=== PATIENT | female | born 1960 | race Caucasian/White ===

== ENCOUNTER 2019-01-22 22:23 | Emergency (ER) | payer BC ==
[2019-01-22 22:59] LABS: INR 1.03 (0.82-1.09)
[2019-01-22 23:43] LABS: ABS Lymphocytes 1.2 10^3/ul (1.0-4.8); ABS Monocytes 0.1 10^3/ul (0-0.8); ABS Neutrophils 0.5 10^3/ul (1.5-7.7); Eosinophil % 0.5 %; Hematocrit 20 % (35-47); Hemoglobin 7.3 g/dL (12.0-16.0); Lymphocyte % 64.9 %; Mean Corpuscular HGB Conc 37 g/dL (31-36); Mean Corpuscular Hemoglobin 44 pg (27-31); Mean Corpuscular Volume 120 fL (80-97); Mean Platelet Volume 6.5 fL (7.4-10.4); Nucleated Red Blood Cells % 0.1; Platelet Count 44 10^3/uL (150-450); Red Blood Count 1.65 10^6 /uL (3.70-4.87); Red Cell Distribution Width 15 % (10-15); White Blood Count 1.8 10^3/uL (3.5-10.8)
[2019-01-23 00:27] LABS: Albumin 4.3 g/dL (3.2-5.2); Albumin/Globulin Ratio 1.8 (1-3); BUN/Creatinine Ratio 26.8 (8-20); Calcium 8.9 mg/dL (8.6-10.3); EGFR African American 101.6 (>60); Globulin 2.4 g/dL (2-4); Potassium 3.4 mmol/L (3.5-5.0); Total Bilirubin 0.4 mg/dL (0.2-1.0); Total Protein 6.7 g/dL (6.4-8.9)
--- NOTE | 2019-01-23 02:16 | ED ---
Shortness of Breath - HPI Summary HPI Summary: Patient is a 59 y/o F presenting to the ED for a chief complaint of shortness of breath that began 3 weeks ago with exertion. Since the episode of shortness of breath, her symptoms have persisted and worsened over the last 3 weeks. On , she notes an episode of lightheadedness that she describes as if she would have a vasovagal after which she sat on the floor until the lightheadedness passed 15 minutes later. At that time, she also felt epigastric abdominal pain. She also admits some midsternal chest pain. Patient denies cough , fever, chills, vomiting, or growths on her body. She was recently seen by her PCP and given a referral to cardiology, but has not yet had her appointment. PMHx is significant for thrombocytosis. - History of Current Complaint Chief Complaint: EDShortnessOfBreath Time Seen by Provider: 01/23/19 01:59 Hx Obtained From: Patient Onset/Duration: Sudden Onset, Still Present Timing: Constant Current Severity: Moderate Dyspnea At: Exertion Aggravating Factors: Nothing Alleviating Factors: Nothing Associated Signs & Symptoms: Dizzy - Allergy/Home Medications Allergies/Adverse Reactions: Allergies Allergy/AdvReac Type Severity Reaction Status Date / Time No Known Allergies Allergy Verified 01/22/19 22:37 Home Medications: Home Medications Aspirin [Aspir-Low] 81 mg PO DAILY 01/23/19 [History Confirmed 01/23/19] HydroxyUREA CAP* [Hydrea CAP*] 1,000 mg PO DAILY 01/23/19 [History Confirmed 01/01] Iron Polysaccharide Complex [Ferrex 150] 150 mg PO DAILY 01/23/19 [History Confirmed 01/23/19] Sertraline HCl [Zoloft] 50 mg PO DAILY 01/23/19 [History Confirmed 01/23/19] PMH/Surg Hx/FS Hx/Imm Hx Previously Healthy: Yes Endocrine/Hematology History: Denies: Hx Diabetes Cardiovascular History: Denies: Hx Hypercholesterolemia, Hx Hypertension Musculoskeletal History: Denies: Hx Rheumatoid Arthritis, Hx Osteoporosis Sensory History: Denies: Hx Legally Blind, Hx Deafness Opthamlomology History: Denies: Hx Legally Blind EENT History: Denies: Hx Deafness - Cancer History Hx Chemotherapy: No Hx Radiation Therapy: No - Surgical History Surgical History: None Surgery Procedure, Year, and Place: None Infectious Disease History: No Infectious Disease History: Denies: Traveled Outside the [place] in Last 30 Days - Family History Known Family History: Negative: Diabetes - Social History Occupation: Employed Full-time Alcohol Use: None Hx Substance Use: No Substance Use Type: Reports: None Hx Tobacco Use: No Smoking Status (MU): Never Smoked Tobacco Review of Systems Negative: Fever, Chills Positive: Chest Pain - Midsternal Positive: Shortness Of Breath. Negative: Cough Positive: Abdominal Pain - Epigastric. Negative: Vomiting Positive: Other - Negative growths on the body Neurological: Other - Positive lightheadedness All Other Systems Reviewed And Are Negative: Yes Physical Exam - Summary Physical Exam Summary: Appearance: Well-appearing, Well-nourished, lying in bed comfortably Skin: Warm, dry, no obvious rash Eyes: sclera anicteric, conjunctival pallor ENT: mucous membranes moist, pharynx appears normal Neck: Supple, nontender Respiratory: Clear to auscultation, no signs of respiratory distress Cardiovascular: Normal S1, S2. No murmurs. Normal distal pulses in tibial and radial bilaterally. Abdomen: Soft, nontender, normal active bowel sounds present Musculoskeletal: Normal, Strength/ROM Intact Neurological: A&Ox3, awake and alert, mentation is normal, speech is fluent and appropriate Psychiatric: affect is normal, does not appear anxious or depressed Triage Information Reviewed: Yes Vital Signs On Initial Exam: Initial Vitals Temp Pulse Resp BP Pulse Ox 98.3 F 99 18 135/76 98 01/22/19 22:31 01/22/19 22:31 01/22/19 22:31 01/22/19 22:31 01/22/19 22:31 Vital Signs Reviewed: Yes Procedures - Sedation Patient Received Moderate/Deep Sedation with Procedure: No Diagnostics - Vital Signs Vital Signs Temp Pulse Resp BP Pulse Ox 01/23/19 00:37 98.1 F 89 18 95/60 99 01/22/19 22:31 98.3 F 99 18 135/76 98 - Laboratory Lab Results: Lab Results 01/22/19 01/22/19 01/22/19 Range/Units 22:46 22:46 22:46 WBC 1.8 L (3.5-10.8) 10^3/uL RBC 1.65 L (3.70-4.87) 10^6 /uL Hgb 7.3 L (12.0-16.0) g/dL Hct 20 L (35-47) % MCV 120 H (80-97) fL MCH 44 H (27-31) pg MCHC 37 H (31-36) g/dL RDW 15 (10-15) % Plt Count 44 L (150-450) 10^3/uL MPV 6.5 L (7.4-10.4) fL Neut % (Auto) 29.7 % Lymph % (Auto) 64.9 % [place] % (Auto) 4.8 % Eos % (Auto) 0.5 % Baso % (Auto) 0.1 % Absolute Neuts (auto) 0.5 L* (1.5-7.7) 10^3/ul Absolute Lymphs (auto) 1.2 (1.0-4.8) 10^3/ul Absolute Monos (auto) 0.1 (0-0.8) 10^3/ul Absolute Eos (auto) 0.0 (0-0.6) 10^3/ul Absolute Basos (auto) 0.0 (0-0.2) 10^3/ul Absolute Nucleated RBC 0.0 10^3/ul Nucleated RBC % 0.1 Hem Pathologist Commnt Pending INR (Anticoag Therapy) 1.03 (0.82-1.09) Sodium 137 (135-145) mmol/L Potassium 3.4 L (3.5-5.0) mmol/L Chloride 103 (101-111) mmol/L Carbon Dioxide 28 (22-32) mmol/L Anion Gap 6 (2-11) mmol/L BUN 19 (6-24) mg/dL Creatinine 0.71 (0.51-0.95) mg/dL Est GFR ( Amer) 101.6 (>60) Est GFR (Non-Af Amer) 84.0 (>60) BUN/Creatinine Ratio 26.8 H (8-20) Glucose 114 H (70-100) mg/dL Calcium 8.9 (8.6-10.3) mg/dL Total Bilirubin 0.40 (0.2-1.0) mg/dL AST 12 L (13-39) U/L ALT 9 (7-52) U/L Alkaline Phosphatase 62 (34-104) U/L Troponin I 0.00 (<0.03) ng/mL Total Protein 6.7 (6.4-8.9) g/dL Albumin 4.3 (3.2-5.2) g/dL Globulin 2.4 (2-4) g/dL Albumin/Globulin Ratio 1.8 (1-3) Result Diagrams: 01/22/19 22:46 01/23/19 04:50 Lab Statement: Any lab studies that have been ordered have been reviewed, and results considered in the medical decision making process. - EKG 22:28 Cardiac Rate: NL - 94 BPM EKG Rhythm: Sinus Rhythm ST Segment: Normal Ectopy: None Summary of EKG Findings: EKG at 22:28 shows NSR at 94 BPM, P waves, QRS complex , and T waves are within normal limits, T waves and intervals are normal, no ischemic changes. This is a normal EKG. Reviewed and interpreted by Dr. Russo. Course/Dx - Course Course Of Treatment: Patient is a 59 y/o F presenting to the ED for a chief complaint of shortness of breath that began 3 weeks ago with exertion. Since the episode of shortness of breath, her symptoms have persisted and worsened over the last 3 weeks. On 01/19/19, she notes an episode of lightheadedness that she describes as if she would have a vasovagal after which she sat on the floor until the lightheadedness passed 15 minutes later. At that time, she also felt epigastric abdominal pain. She also admits some midsternal chest pain. Patient denies cough, fever, chills, vomiting, or growths on her body. She was recently seen by her PCP and given a referral to cardiology, but has not yet had her appointment. PMHx is significant for thrombocytosis. On exam, conjunctival pallor. Laboratory abnormal findings: WBC 1.8, RBC 1.65, Hgb 7.3, Hct 20, MCV 120, MCH 44, MCHC 37, Plt count 44, MPV 6.5, absolute neuts 0.5, potassium 3.4, BUN/creatinine ratio 26.8, glucose 114, AST 12. EKG at 22:28 shows NSR at 94 BPM, P waves, QRS complex, and T waves are within normal limits , T waves and intervals are normal, no ischemic changes. This is a normal EKG. At 02:56, Dr. Mosley agrees to admit the patient with a diagnosis of pancytopenia. Patient will be admitted to [facility] with a diagnosis of pancytopenia. - Diagnoses Provider Diagnoses: Pancytopenia, Severe anemia - Physician Notifications Discussed Care of Patient With: Audrey Mosley - At 02:56, Dr. Mosley agrees to admit the patient with a diagnosis of pancytopenia. Time Discussed With Above Provider: 02:56 Instructed by Provider To: Admit As Inpatient Discharge ED - Sign-Out/Discharge Documenting (check all that apply): Patient Departure - Admit - Discharge Plan Condition: Guarded Disposition: ADMITTED TO [facility] - Billing Disposition and Condition Condition: GUARDED Disposition: Admitted to [facility] - Attestation Statements Document Initiated by El: Yes Documenting Scribe: Maria M Bojorquez Provider For Whom El is Documenting (Include Credential): Donny Russo MD Scribe Attestation: Maria M Barahona scribed for Donny Russo MD on 01/23/19 at 0630. Scribe Documentation Reviewed: Yes Provider Attestation: The documentation as recorded by the Maria M wright accurately reflects the service I personally performed and the decisions made by Donny fernandez MD Status of Scribe Document: Viewed
--- NOTE | 2019-01-23 05:05 | HP ---
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 Initial labs show pancytopenia. Oncology consulted in the ER, recommended blood transfusion and will see her in the morning. - Past Medical History Heme/Onc: Other - thrombocytosis - Past Surgical History Past Surgical History: None - Past Family History Family History: Cancer - Past Social History Smoke: No Alcohol: None Drugs: None Lives: With Family Review of Systems - Measurements Intake and Output: Intake and Output Last 24 Hours 01/20/19 01/21/19 01/22/19 01/23/19 06:59 06:59 06:59 06:59 Weight 112 lb 3.445 oz - Review of Systems Constitutional Symptoms: Positive: Fatigue, Unexplained Falls Negative: Weight Gain, Weight Loss, Weakness, Fever, Night Sweats, Other Dermatology: Negative: Normal, Rash, Skin Lesions, Cancer, Skin Lumps, Other HEENT: Negative: Normal, Change in Hearing, Vertigo, Dental Problems, Tinnitus, Sinus Problem, Other Eyes: Negative: Normal, Change in Vision, Double Vision, Eye Pain, Glaucoma, Cataract, Contacts or Glasses, Other Thyroid: Negative: Normal, Goiter, Thyroid Nodule, Cold Intolerance, Heat Intolerance , Sweatiness, Tremor, Frequent Defecation, Constipation, Palpitations, Primary Hypothyroidism, Primary Hyperthyroidism, Weight Loss, Weight Gain, Change in Skin/Hair, Change in Menstruation, Radiation Exposure, Other Pulmonary: Negative: Normal, Cough, Sputum, Hemoptysis, Wheezing, Respiratory Distress, Shortness of Breath, COPD, Asthma, Exercise Intolerance, Home Oxygen, Other Cardiology: Negative: Normal, Chest Pain, Shortness of Breath, Palpitations, Swelling of Ankles, Peripheral Vascular Dis, Edema, Faintness, Syncope, Claudication, Proximal NocturnalDyspnea, Orthopnoea, Other Gastroenterology: Negative: Normal, Abdominal Pain, Nausea, Vomiting, Anorexia, Indigestion, Difficulty Swallowing, Heartburn, Constipation, Diarrhea, Blood in Stools, Change in Bowel Habits, Haematemesis, Melena, Other Genital - Urinary: Negative: Normal, Dysuria, Hematuria, Polyuria, Nocturia, Other Musculoskeletal: Negative: Joint Pain, Joint Stiffness, Arthritis, Osteoporosis, Low Back Pain , Sciatica, Joint Deformities, Kyphoscoliosis, Other Endocrinology: Negative: Normal, Thyroid Problems, Adrenal Problems, Gonadal Problems, Family Hx Endocrine Disorders, Obesity, Diabetes Mellitus, Hyperglycemia, Hx Hypoglycemia, Diabetic Foot Ulcers, Calluses, Hirsutism, Menstrual Abnormalities , Polydipsia, Polyuria, Gonadal Problems, Gynecomastia, Pituitary disease, Other Hematologic/Lymphatic: Negative: Anemia, Easy Bruising, Hx Leukemia, Hx Lymphoma, Use of Anticoagulant, Use of Antiplatelet Drugs, Other Neurology: Negative: Normal, Headache, Migraines, Change in Vision, Diplopia, Dizziness , Change in Balancing, Change in Coordination, Change in Memory, Change in Speech, Change in Sphincter Function, Change in Walking, Numbness\Paresthesiae, Unexplained Weakness, Hx of Stroke\TIA, Hx of Seizures, Other Psychiatry: Negative: Normal, Depression, Anxiety, Depressed Mood, Anhedonia, Sexual Dysfunction, Weight Change, Guilt Feelings, Tearfulness, Unusual Fatigue, Unusual Anxiety, Suicidal Ideation, Hypomania, Eating Disorders, Other Objective Active Medications: Hydroxyurea (Hydrea Cap*) 1,000 mg PO DAILY [facility] Sertraline HCl (Zoloft*) 50 mg PO DAILY [facility] Vital Signs - 8 hr 01/22/19 01/23/19 01/23/19 22:31 00:37 02:03 Temperature 98.3 F 98.1 F Pulse Rate 99 89 89 Respiratory 18 18 19 Rate Blood Pressure 135/76 95/60 (mmHg) O2 Sat by Pulse 98 99 100 Oximetry 01/23/19 01/23/19 01/23/19 02:04 02:34 03:00 Temperature Pulse Rate 85 92 87 Respiratory 19 13 14 Rate Blood Pressure 155/95 154/84 (mmHg) O2 Sat by Pulse 100 99 98 Oximetry 01/23/19 01/23/19 01/23/19 03:04 03:42 03:55 Temperature Pulse Rate 85 86 83 Respiratory 19 10 17 Rate Blood Pressure 131/79 132/81 120/78 (mmHg) O2 Sat by Pulse 98 98 98 Oximetry 01/23/19 01/23/19 01/23/19 04:00 04:03 04:04 Temperature 97.9 F Pulse Rate 85 82 Respiratory 10 15 Rate Blood Pressure 117/72 (mmHg) O2 Sat by Pulse 99 99 Oximetry 01/23/19 04:18 Temperature 97.7 F Pulse Rate 83 Respiratory 14 Rate Blood Pressure 112/67 (mmHg) O2 Sat by Pulse 100 Oximetry Oxygen Devices in Use Now: None Appearance: pleasant, NID Eyes: No Scleral Icterus, PERRLA Ears/Nose/Mouth/Throat: NL Teeth, Lips, Gums, Clear Oropharnyx, Mucous Membranes Moist Neck: NL Appearance and Movements; NL JVP, Trachea Midline Respiratory: Symmetrical Chest Expansion and Respiratory Effort, Clear to Auscultation, Clear to Percussion Cardiovascular: NL Sounds; No Murmurs; No JVD, No Edema Abdominal: NL Sounds; No Tenderness; No Distention Lymphatic: No Cervical Adenopathy Extremities: No Edema Skin: No Rash or Ulcers, No Nodules or Sclerosis Neurological: Alert and Oriented x 3, NL Muscle Strength and Tone Result Diagrams: 01/22/19 22:46 01/22/19 22:46 Additional Lab and Data: Lab Results 01/22/19 01/22/19 01/22/19 Range/Units 22:46 22:46 22:46 WBC 1.8 L (3.5-10.8) 10^3/uL RBC 1.65 L (3.70-4.87) 10^6 /uL Hgb 7.3 L (12.0-16.0) g/dL Hct 20 L (35-47) % MCV 120 H (80-97) fL MCH 44 H (27-31) pg MCHC 37 H (31-36) g/dL RDW 15 (10-15) % Plt Count 44 L (150-450) 10^3/uL MPV 6.5 L (7.4-10.4) fL Neut % (Auto) 29.7 % Lymph % (Auto) 64.9 % [place] % (Auto) 4.8 % Eos % (Auto) 0.5 % Baso % (Auto) 0.1 % Absolute Neuts (auto) 0.5 L* (1.5-7.7) 10^3/ul Absolute Lymphs (auto) 1.2 (1.0-4.8) 10^3/ul Absolute Monos (auto) 0.1 (0-0.8) 10^3/ul Absolute Eos (auto) 0.0 (0-0.6) 10^3/ul Absolute Basos (auto) 0.0 (0-0.2) 10^3/ul Absolute Nucleated RBC 0.0 10^3/ul Nucleated RBC % 0.1 Hem Pathologist Commnt Pending INR (Anticoag Therapy) 1.03 (0.82-1.09) Sodium 137 (135-145) mmol/L Potassium 3.4 L (3.5-5.0) mmol/L Chloride 103 (101-111) mmol/L Carbon Dioxide 28 (22-32) mmol/L Anion Gap 6 (2-11) mmol/L BUN 19 (6-24) mg/dL Creatinine 0.71 (0.51-0.95) mg/dL Est GFR ( Amer) 101.6 (>60) Est GFR (Non-Af Amer) 84.0 (>60) BUN/Creatinine Ratio 26.8 H (8-20) Glucose 114 H (70-100) mg/dL Calcium 8.9 (8.6-10.3) mg/dL Total Bilirubin 0.40 (0.2-1.0) mg/dL AST 12 L (13-39) U/L ALT 9 (7-52) U/L Alkaline Phosphatase 62 (34-104) U/L Troponin I 0.00 (<0.03) ng/mL Total Protein 6.7 (6.4-8.9) g/dL Albumin 4.3 (3.2-5.2) g/dL Globulin 2.4 (2-4) g/dL Albumin/Globulin Ratio 1.8 (1-3) Assess/Plan/Problems-Billing Assessment: - Patient Problems (1) Pancytopenia Current Visit: Yes Status: Acute Code(s): D61.818 - OTHER PANCYTOPENIA SNOMED Code(s): 532998003 Comment: new pancytopenia in a patient with thrombocytosis with Jak2 mutation presented with DELA CRUZ. Will get transfuse for symptomatic anemia Oncology will be following in the morning (2) Full code status Current Visit: Yes Status: Acute Code(s): Z78.9 - OTHER SPECIFIED HEALTH STATUS SNOMED Code(s): 358142986 (3) DVT prophylaxis Current Visit: Yes Status: Acute Code(s): Z29.9 - ENCOUNTER FOR PROPHYLACTIC MEASURES, UNSPECIFIED SNOMED Code(s): 970010550 Comment: will hold due to anemia and thrombocytopenia
[2019-01-23 05:24] LABS: BUN/Creatinine Ratio 27.1 (8-20); Calcium 8.9 mg/dL (8.6-10.3); EGFR African American 125.8 (>60); Potassium 3.7 mmol/L (3.5-5.0)
[2019-01-23 05:26] LABS: Troponin I 0.01 ng/mL (<0.03)
[2019-01-23] MEDS ORDERED: Ondansetron INJ* 2 MG/ML VIAL IV ONE (07:50)
[2019-01-23] MEDS ORDERED: HydroxyUREA CAP* 500 MG CAP PO SCH (09:00)
[2019-01-23] MEDS ORDERED: Sertraline* 50 MG TAB PO SCH (09:00)
[2019-01-23 10:08] VITALS: BP 137/89
--- NOTE | 2019-01-23 10:33 | DS ---
DISCHARGE SUMMARY: DATE OF ADMISSION: 01/23/19 DATE OF DISCHARGE: 01/23/19 DISCHARGE DIAGNOSES: 1. Pancytopenia secondary to hydroxyurea. 2. Dyspepsia. 3. Shortness of breath. HOSPITAL COURSE: She came to the emergency room yesterday with several weeks of increasing shortness of breath, weakness, epigastric to chest pain. She is found to be pancytopenic with a hemoglobin 7. 3, white count 1.8, ANC of 500, and platelets of 44,000. She had been on hydroxyurea 1000 mg daily w ith last CBC done in September. She was transfused 1 unit of packed red blood cells. Dyspepsia is her primary complaint, occasional nausea. Symptoms were worse over the past 2 weeks. N o dysphagia. Normal bowel movements. Suspected all of her symptoms are from pancytopenia. However, she does have a history of low iron an d given her dyspepsia, we will need GI evaluation as an outpatient. Recheck iron studies on her pret ransfusion labs. She has an appointment to see me on Monday, in 2 days in clinic with a CBC and we w ill keep those appointment. DISCHARGE MEDICATIONS: 1. Zoloft 50 mg p.o. daily. 2. Aspirin 81 mg a day. 3. Poly-Iron 150 daily. 4. Starting omeprazole 40 mg p.o. daily. CONDITION ON DISCHARGE: Good. DISPOSITION: Home. PENDING STUDIES: Ferritin and iron saturation. FOLLOWUP: Followup will be in 2 days in my office. [id number]/[facility] #: [id number]
== END 2019-01-23 10:07 | disposition home or self-care (01) ==
LOC: ED 22:23 → MED 01-23 04:49 → UNDOADMIN 01-23 04:49
DX: D61.818 Other pancytopenia (principal); R07.9 Chest pain, unspecified; D64.9 Anemia, unspecified; R06.02 Shortness of breath; Z79.82 Long term (current) use of aspirin
CPT/HCPCS: 36415; 36430; 80048; 80053; 83735; 84484; 85025; 85060; 85610; 86850; 86900; 86901; 86922; 93005; 96374; 99217; 99284; A9270-GY; J2405; P9040